=== PATIENT | female | born 2000 | race Hispanic/Latino ===

== ENCOUNTER → 2022-12-25 | Outpatient (REF) | payer OTHER | LOC: M LAB REF 14:03 | PROVIDERS: ATTEND Physician Assistant Medical | DX: J02.9 Acute pharyngitis, unspecified (principal) ==

== ENCOUNTER 2023-01-05 21:00 | Emergency (ER) | payer OTHER ==
[~2023-01-05] VITALS: Ht 162.6 cm; Wt 75.9 kg
[2023-01-05 22:02] LABS: BASO # 0.1 10^3/uL (0.0-0.2); BASO % 0.2 % (0.0-1.0); EOS # 0.2 10^3/uL (0.0-0.5); HEMATOCRIT 40.7 % (36.0-47.0); HEMOGLOBIN 14.1 g/dl (12.0-15.5); LYMPH # 3.7 10^3/uL (1.5-5.0); LYMPH % 18.6 % (24.0-44.0); MEAN CORPUSCULAR HEMOGLOBIN 30.3 pg (27.0-33.0); MEAN CORPUSCULAR HGB CONC 34.6 g/dl (32.0-36.5); MEAN CORPUSCULAR VOLUME 87.3 fl (80.0-96.0); MONO # 1.5 10^3/uL (0.0-0.8); MONO % 7.3 % (2.0-8.0); NEUTROPHILS # 14.5 10^3/uL (1.5-8.5); NEUTROPHILS % 72.5 % (36.0-66.0); PLATELET COUNT, AUTOMATED 292 10^3/uL (150-450); RED BLOOD COUNT 4.66 10^6/uL (4.00-5.40)
[2023-01-05 22:30] LABS: LIPASE 28 U/L (12-53)
[2023-01-05 22:36] LABS: ALBUMIN 3.9 G/DL (3.2-5.2); ALKALINE PHOSPHATASE 138 U/L (46-116); ALT/SGPT 22 U/L (7.0-40); AST/SGOT 19 U/L (<34); BILIRUBIN,DIRECT 0.2 MG/DL (<0.4); BILIRUBIN,TOTAL 0.5 MG/DL (0.3-1.2); BLOOD UREA NITROGEN 15 MG/DL (9-23); CALCIUM LEVEL 9.2 MG/DL (8.5-10.1); CARBON DIOXIDE LEVEL 25 MMOL/L (20-31); CHLORIDE LEVEL 106 MMOL/L (98-107); CREATININE FOR GFR 0.68 MG/DL (0.55-1.30); GLOMERULAR FILTRATION RATE > 60.0 (>60); GLUCOSE, FASTING 86 MG/DL (60-100); POTASSIUM SERUM 3.8 MMOL/L (3.5-5.1); SODIUM LEVEL 138 MMOL/L (136-145); TOTAL PROTEIN 6.8 G/DL (5.7-8.2)
[2023-01-05 22:38] LABS: HCG, SERUM QUALITATIVE NEGATIVE (NEGATIVE)
[2023-01-05] MEDS ORDERED: cefTRIAXone SOD 1 GM in D5W MINI-BAG PLUS 50 ML IV ONE (23:10)
[2023-01-05] MEDS ORDERED: NS 1,000 ML IV ONE (23:10)
[2023-01-05] MEDS ORDERED: ISOVUE-370 76% 100ML VIAL As Ordered ONE (23:14)
[2023-01-05 23:31] LABS: GC DNA AMPLIFICATION NEGATIVE (NEGATIVE)
[2023-01-06] MEDS ORDERED: CIPR-249 PO (00:59)
[2023-01-06 01:11] VITALS: BP 138/64
== END 2023-01-06 01:29 | disposition home or self-care (01) ==
LOC: M ED 21:00
DX: N30.00 Acute cystitis without hematuria (principal)
CPT/HCPCS: 74177; 80048; 80076; 81001; 83605; 83690; 84703; 85025; 87040; 87086; 87661; 87810; 87850; 96365; 99283; J0696; Q9967

== ENCOUNTER → 2025-07-25 | Outpatient (CLI) | payer OTHER ==
[~2025-07-25] MED LIST: CIPR-249 PO
[2025-07-25 17:32] LABS: PLATELET COUNT, AUTOMATED 272 10^3/uL (150-450)
[2025-07-25 18:13] LABS: HIV 1&2 SCREEN NEGATIVE (NEGATIVE)
[2025-07-25 18:21] LABS: HEPATITIS C VIRUS ABY INDEX < 0.02 INDEX (<0.8)
[2025-07-25 18:38] LABS: Trichomonas vaginalis (AMP) NOT DETECTED (NEGATIVE)
[2025-07-25 19:02] LABS: GC DNA AMPLIFICATION NEGATIVE (NEGATIVE)
== END ==
LOC: M PLALAB 15:32
PROVIDERS: ATTEND Student in an Organized Health Care Education/Training Program
DX: Z34.80 Encounter for supervision of other normal pregnancy, unspecified trimester (principal)

== ENCOUNTER 2025-08-06 13:03 | Emergency (ER) | payer OTHER ==
[~2025-08-06] VITALS: Ht 160 cm; Wt 81.3 kg
[2025-08-06] MEDS ORDERED: PROA1AER2 INH (13:12)
[2025-08-06 17:58] VITALS: BP 119/55; TEMP 98.5; O2SAT 99
== END 2025-08-06 18:01 | disposition home or self-care (01) ==
LOC: M ED 13:03
DX: R06.00 Dyspnea, unspecified (principal); J45.909 Unspecified asthma, uncomplicated; Z88.8 Allergy status to other drugs, medicaments and biological substances; Z79.51 Long term (current) use of inhaled steroids

== ENCOUNTER → 2025-08-21 | Outpatient (REF) | payer OTHER ==
[~2025-08-21] MED LIST changes: +PROA1AER2 INH
== END ==
LOC: M LAB REF 11:57
PROVIDERS: ATTEND Physician Assistant
DX: B34.9 Viral infection, unspecified (principal)

== ENCOUNTER → 2025-09-30 | Outpatient (CLI) | payer OTHER | LOC: M WHC 08:18 | PROVIDERS: ATTEND Specialist | DX: Z34.02 Encounter for supervision of normal first pregnancy, second trimester (principal) ==